=== PATIENT | female | born 1960 | race American Indian/Alaskan Native ===

== ENCOUNTER 2023-06-10 12:13 | Day surgery (SDC) | payer MEDICAID, SELFPAY ==
--- NOTE | 2023-06-10 12:24 | US_ITS ---
[address] [address] Patient Name: ARIAN WHITE MRN: [id number] date: 1960 Sex: F Assigned Patient Location: US Current Patient Location: Accession/Order Number: [id number] Exam Date: 06/10/2023 12:40 Report Date: 06/10/2023 14:58 At the request of: ZAINAB DODGE Procedure: US biopsy thyroid EXAMINATION: US biopsy thyroid HISTORY: Thyroid Nodule COMPARISON: Ultrasound thyroid 04/06/2023 TECHNIQUE: After obtaining informed consent, ultrasound-guided fine needle aspiration was performed in the usual sterile manner. FINDINGS: IMAGING: Ultrasound. BIOPSY NEEDLE: 25-gauge; 3 separate passes LOCATION: Right lobe inferior pole 2.1 cm heterogeneous nodule. SPECIMEN TYPE: Cellular tissue. LOCAL ANESTHETIC: Buffered Xylocaine. COMPLICATIONS: None. LABORATORY: Prepared slide smears and washings for cell block evaluation. OTHER: Negative. PATHOLOGY: Pending. An addendum will be added when results are available. US/US biopsy thyroid IMPRESSION: 1. Uneventful ultrasound guided fine needle aspiration (FNA). 2. Pathology results are pending. Electronically authenticated by: ANDREW HUTCHINSON Date: 06/10/2023 14:58
[2023-06-10 12:30] VITALS: BP 132/87; PULSE 89; O2SAT 97
[2023-06-10] MEDS: LIDOCAINE HCL 10 ML, SODIUM BICARBONATE 1 MEQ INJ (13:00)
--- NOTE | 2023-06-10 13:50 | SUR.PREOP ---
06/03/23 Pt instructed on procedure, date ,time, and prep.
== END 2023-06-10 13:25 | disposition home or self-care (01) ==
LOC: US 12:17
PROVIDERS: Radiology Diagnostic Radiology; PCP Nurse Practitioner Family; Visit Provider Otolaryngology
DX: E04.1 Nontoxic single thyroid nodule (principal)
CPT/HCPCS: 10005; 99999